=== PATIENT | female | born 1935 | race Caucasian/White ===

== ENCOUNTER → 2017-09-26 | Outpatient (CLI) | payer OTHER | LOC: M.RAD 14:46 | DX: J45.909 Unspecified asthma, uncomplicated (principal); M25.552 Pain in left hip ==

== ENCOUNTER → 2019-02-07 | Outpatient (CLI) | payer OTHER | LOC: M.RAD 14:37 | DX: R91.8 Other nonspecific abnormal finding of lung field (principal) ==

== ENCOUNTER → 2019-02-28 | Outpatient (CLI) | payer OTHER | LOC: M.RAD 12:50 | DX: J84.10 Pulmonary fibrosis, unspecified (principal); R91.8 Other nonspecific abnormal finding of lung field ==

== ENCOUNTER → 2019-04-11 | Outpatient (CLI) | payer MEDICARE | LOC: M.RAD 13:11 | DX: J98.4 Other disorders of lung (principal); J18.9 Pneumonia, unspecified organism; I77.810 Thoracic aortic ectasia ==

== ENCOUNTER → 2021-01-23 | Outpatient (CLI) | payer MEDICARE | LOC: M.RTH 14:41 | DX: M16.11 Unilateral primary osteoarthritis, right hip (principal) ==